=== PATIENT | female | born 1990 | race Caucasian/White ===

== ENCOUNTER 2022-01-30 15:05 | Outpatient (CLI) | payer BC ==
[2022-01-30 15:43] LABS: Bilirubin Neg (Negative); Blood, Urine Negative (Negative); Clarity Clear (Clear); Glucose, Urine (Dipstick) Normal (Negative); Ketone, Urine Negative (Negative); Leukocyte Negative (Negative); Nitrite Negative (Negative); Protein, Urine (Dipstick) Negative (Neg-Trace); Urobilinogen Normal mg/dL (Less than 2)
[2022-01-30 15:46] LABS: Hemoglobin 13.1 g/dL (12.0-15.5); Mean Corpuscular HGB CONC 32.8 g/dL (32.0-36.0); Mean Corpuscular Hemoglobin 27.3 pg (27.0-33.0); Mean Corpuscular Volume 83.1 fl (81.6-98.3); Mean Platelet Volume 10.4 fl (7.4-10.4); Platelet Count 410 10x3/uL (150-450); White Blood Cell (WBC) Count 11.3 10x3/uL (3.5-10.5)
[2022-01-30 15:58] LABS: BHCG - Serum Negative (NEGATIVE); Pregs Control Background? CLEAR/WHITE (CLR/WHITE); Pregs Control Bar Appear? YES (CONTROL BAR)
== END 2022-01-30 15:06 | disposition home or self-care (01) ==
LOC: CSHLAB 15:05
PROVIDERS: ATTEND Obstetrics & Gynecology
DX: Z01.812 Encounter for preprocedural laboratory examination (principal); Z20.822 Contact with and (suspected) exposure to COVID-19
CPT/HCPCS: 81003; 84703; 85027; U0003; U0005

== ENCOUNTER 2022-02-02 07:13 | Day surgery (SDC) | payer BC ==
[2022-01-31 15:21] VITALS: BMI 32.1
[2022-02-02] MEDS ORDERED: PROPOFOL 0 ML ONE (08:59)
[2022-02-02] MEDS ORDERED: Ondansetron PF 4 MG/2 ML Vial ONE ×2 (09:00→13:55)
[2022-02-02] MEDS ORDERED: Lidocaine 1% PF 5 ML VIAL ONE (09:00)
[2022-02-02] MEDS ORDERED: Dexamethasone 4 mg/ml Vial ONE ×2 (09:00→13:55)
[2022-02-02] MEDS ORDERED: Fentanyl 100 MCG/2 ML VIAL ONE ×2 (09:00→13:31)
[2022-02-02] MEDS ORDERED: Ketorolac Tromethamine 30 MG/ML VIAL ONE ×2 (09:00→14:04)
[2022-02-02] MEDS ORDERED: Fentanyl 250 MCG/5 ML VIAL ONE (09:13)
[2022-02-02] MEDS ORDERED: ceFAZolin 2 GM/Dextrose 50 ML IVPB ONE (09:57)
[2022-02-02] MEDS ORDERED: Silver Nitrate Application 1 EACH ONE (11:15)
[2022-02-02] MEDS ORDERED: PROPOFOL 20 ML ONE (13:31)
[2022-02-02] MEDS ORDERED: Glycopyrrolate 0.2 MG/ML 5 ML SYRINGE ONE (14:07)
== END 2022-02-02 12:49 | disposition home or self-care (01) ==
LOC: CSHSDC 07:13
PROVIDERS: ATTEND Obstetrics & Gynecology
PROC: 0UDB8ZZ Extraction of Endometrium, Via Natural or Artificial Opening Endoscopic (ICD-10-PCS; principal; 2022-02-02)
PROC: 0UPD7HZ Removal of Contraceptive Device from Uterus and Cervix, Via Natural or Artificial Opening (ICD-10-PCS; principal; 2022-02-02)
PROC: 0U5B8ZZ Destruction of Endometrium, Via Natural or Artificial Opening Endoscopic (ICD-10-PCS; principal; 2022-02-02)
DX: N93.8 Other specified abnormal uterine and vaginal bleeding (principal); N94.6 Dysmenorrhea, unspecified; N84.0 Polyp of corpus uteri; Z97.5 Presence of (intrauterine) contraceptive device
CPT/HCPCS: J0690; J1100; J1885; J2405; J2704; J3010; L8699